=== PATIENT | female | born 1990 | race Two or more races ===

== ENCOUNTER → 2023-01-10 08:16 | Outpatient (REF) | payer BC, SELFPAY ==
[2023-01-10 13:08] LABS: Beta HCG Quantitative < 2.39 mIU/ml
== END ==
LOC: REG 08:16
PROVIDERS: ATTENDING PHYSICIAN Student in an Organized Health Care Education/Training Program; FAMILY PHYSICIAN Nurse Practitioner Family
DX: N92.6 Irregular menstruation, unspecified (principal)
CPT/HCPCS: 36415; 84702

== ENCOUNTER → 2023-05-26 12:19 | Outpatient (REF) | payer BC, SELFPAY | LOC: RAD 12:19 | PROVIDERS: ATTENDING PHYSICIAN Nurse Practitioner Family | DX: Z32.01 Encounter for pregnancy test, result positive (principal) | CPT/HCPCS: 36415; 84702 ==

== ENCOUNTER → 2023-06-01 09:24 | Outpatient (REF) | payer BC, SELFPAY ==
[2023-06-10 00:19] LABS: Chlamydia trachomatis,ThinPrep Negative (Negative); Neisseria gonorrhoeae,ThinPrep Negative (Negative); Specimen Source Cervical
[2023-06-10 00:31] LABS: HPV, High Risk Not Detected; HPV, High Risk Source Cervical
== END ==
LOC: CPAP 09:24
PROVIDERS: ATTENDING PHYSICIAN Obstetrics & Gynecology
DX: Z01.419 Encounter for gynecological examination (general) (routine) without abnormal findings (principal); Z11.51 Encounter for screening for human papillomavirus (HPV); Z11.3 Encounter for screening for infections with a predominantly sexual mode of transmission
CPT/HCPCS: 87491; 87591; 87624; G0123

== ENCOUNTER → 2023-06-02 08:05 | Outpatient (REF) | payer BC, SELFPAY ==
[2023-06-02 09:03] LABS: % Basophils 0.4 % (0-2); % Eosinophils 0.6 % (0-6); % Immature Granulocytes 0.2 % (0-0.5); % Lymphocytes 23.9 % (20.5-51.1); % Monocytes 6.7 % (1.7-9.3); % Neutrophils 68.2 % (42.2-75.2); Absolute Eosinophils 0.1 10^3/uL (0-0.7); Absolute Lymphocytes 2.1 10^3/uL (1.2-3.4); Absolute Monocytes 0.6 10^3/uL (0.1-0.6); Absolute Neutrophils 6.1 10^3/uL (1.4-6.5); Hematocrit 37.8 % (37.0-47.0); Hemoglobin 13.5 g/dL (12.0-16.0); Mean Corp Hgb Conc. 35.7 g/dL (33.0-37.0); Mean Corpuscular Volume 89.6 fL (81.0-99.0); Mean Platelet Volume 9.2 fL (7.4-10.4); Nucleated Red Blood Cells % 0 %; Platelet Count 232 10^3/uL (130-400); Red Blood Cell Count 4.22 10^6/uL (4.20-5.40); Red Cell Dist. Width 12.1 % (11.5-14.5); White Blood Cell Count 8.9 10^3/uL (4.8-10.8)
[2023-06-02 09:30] LABS: Glycohemoglobin (HgbA1c) 5.2 % (4.0-5.6)
[2023-06-02 09:59] LABS: Rubella Positive
[2023-06-02 10:05] LABS: Hepatitis B Surface Antigen Negative (Negative)
[2023-06-02 10:22] LABS: Hepatitis C Antibody Negative (Negative)
[2023-06-02 10:55] LABS: Urine Albumin Negative (Neg - Trace); Urine Bilirubin Negative (Negative); Urine Character Clear (Clear); Urine Color Yellow; Urine Glucose Negative (Negative); Urine Ketone Negative (Negative); Urine Leukocyte 1+ (Negative); Urine Nitrite Negative (Negative); Urine Occult Blood Negative (Negative); Urine Specific Gravity 1.005 (<1.030); Urine Urobilinogen Negative (Neg - 1+)
[2023-06-02 11:16] LABS: Urine White Cell 0-2 /HPF (0-5)
[2023-06-02 17:19] LABS: Syphilis/T. pallidum Ab Reflex Negative (Negative)
[2023-06-02 19:23] LABS: HIV Combo Negative (Negative)
== END ==
LOC: REG 08:05
PROVIDERS: ATTENDING PHYSICIAN Obstetrics & Gynecology; FAMILY PHYSICIAN Nurse Practitioner Family
DX: Z34.90 Encounter for supervision of normal pregnancy, unspecified, unspecified trimester (principal)
CPT/HCPCS: 36415; 80055; 81003; 81015; 83036; 84702; 86803; 86850; 86900; 86901; 87086; 87389

== ENCOUNTER → 2023-06-12 14:28 | Outpatient (REF) | payer BC, SELFPAY | LOC: PNTC 14:28 | PROVIDERS: ATTENDING PHYSICIAN Obstetrics & Gynecology | DX: Z36.0 Encounter for antenatal screening for chromosomal anomalies (principal) | CPT/HCPCS: 36415 ==

== ENCOUNTER → 2023-07-11 12:10 | Outpatient (REF) | payer BC, SELFPAY | LOC: REG 12:10 | PROVIDERS: ATTENDING PHYSICIAN Obstetrics & Gynecology; FAMILY PHYSICIAN Nurse Practitioner Family | DX: Z34.90 Encounter for supervision of normal pregnancy, unspecified, unspecified trimester (principal) | CPT/HCPCS: 36415; 82105 ==

== ENCOUNTER → 2023-09-07 08:18 | Outpatient (REF) | payer BC, SELFPAY ==
[2023-09-07 10:04] LABS: % Basophils 0.3 % (0-2); % Eosinophils 1.1 % (0-6); % Immature Granulocytes 0.9 % (0-0.5); % Lymphocytes 23.1 % (20.5-51.1); % Monocytes 6.5 % (1.7-9.3); % Neutrophils 68.1 % (42.2-75.2); Absolute Eosinophils 0.1 10^3/uL (0-0.7); Absolute Immature Granulocytes 0.1 10^3/uL (0-0.05); Absolute Lymphocytes 2.3 10^3/uL (1.2-3.4); Absolute Monocytes 0.7 10^3/uL (0.1-0.6); Absolute Neutrophils 6.8 10^3/uL (1.4-6.5); Hemoglobin 11.8 g/dL (12.0-16.0); Mean Corp Hgb Conc. 34.7 g/dL (33.0-37.0); Mean Corpuscular Hgb 30.6 pg (27.0-31.0); Mean Corpuscular Volume 88.3 fL (81.0-99.0); Nucleated Red Blood Cells % 0 %; Platelet Count 276 10^3/uL (130-400); Red Blood Cell Count 3.85 10^6/uL (4.20-5.40); Red Cell Dist. Width 12.3 % (11.5-14.5)
[2023-09-07 11:56] LABS: 1 Hour after 50gm 93 mg/dl
[2023-09-08 15:57] LABS: Syphilis/T. pallidum Ab Reflex Negative (Negative)
== END ==
LOC: REG 08:18
PROVIDERS: ATTENDING PHYSICIAN Obstetrics & Gynecology; FAMILY PHYSICIAN Nurse Practitioner Family
DX: Z34.03 Encounter for supervision of normal first pregnancy, third trimester (principal)
CPT/HCPCS: 36415; 82950; 85025; 86780

== ENCOUNTER → 2023-09-28 08:51 | Outpatient (REF) | payer BC, SELFPAY | LOC: PNTC 08:51 | PROVIDERS: ATTENDING PHYSICIAN Obstetrics & Gynecology | DX: O36.8190 Decreased fetal movements, unspecified trimester, not applicable or unspecified (principal) | CPT/HCPCS: 59025; 76815 ==

== ENCOUNTER 2023-10-25 12:58 | Observation (INO) | payer BC, SELFPAY ==
[2023-10-25] MEDS: LR 1000 IV (13:00)
[2023-10-25 13:15] LABS: Urine Albumin Negative (Neg - Trace); Urine Bilirubin Negative (Negative); Urine Character Clear (Clear); Urine Color Yellow; Urine Glucose Negative (Negative); Urine Ketone 1+ (Negative); Urine Leukocyte 1+ (Negative); Urine Nitrite Negative (Negative); Urine Occult Blood Negative (Negative); Urine Specific Gravity 1.005 (<1.030); Urine Urobilinogen Negative (Neg - 1+)
[2023-10-25 13:19] VITALS: BP 116/76; BMI 30.8
[2023-10-25 13:55] LABS: Urine Squamous Cell >30 /LPF (Few)
[2023-10-25 13:58] LABS: Urine Bacteria Moderate (Negative); Urine Red Blood Cell None Seen /HPF (0-2)
[2023-10-25] MEDS: BRETHINE 250 MCG SC (15:01)
[2023-10-25 15:21] LABS: COVID-19 Antigen Negative (Negative)
== END 2023-10-25 18:16 | disposition home or self-care (01) ==
LOC: LDRP 12:58
PROVIDERS: ADMITTING PHYSICIAN Obstetrics & Gynecology; ATTENDING PHYSICIAN Obstetrics & Gynecology
DX: O36.8130 Decreased fetal movements, third trimester, not applicable or unspecified (principal); O47.03 False labor before 37 completed weeks of gestation, third trimester; Z3A.33 33 weeks gestation of pregnancy; O98.813 Other maternal infectious and parasitic diseases complicating pregnancy, third trimester; B37.31 Acute candidiasis of vulva and vagina; Z11.52 Encounter for screening for COVID-19
CPT/HCPCS: 59025; 76815; 81003; 81015; 87086; 87811; G0378

== ENCOUNTER → 2023-10-27 08:36 | Outpatient (REF) | payer BC, SELFPAY ==
[2023-10-27 09:13] LABS: % Basophils 0.5 % (0-2); % Eosinophils 1.7 % (0-6); % Immature Granulocytes 1.3 % (0-0.5); % Lymphocytes 23.2 % (20.5-51.1); % Monocytes 9.8 % (1.7-9.3); % Neutrophils 63.5 % (42.2-75.2); Absolute Eosinophils 0.2 10^3/uL (0-0.7); Absolute Immature Granulocytes 0.1 10^3/uL (0-0.05); Absolute Monocytes 0.9 10^3/uL (0.1-0.6); Absolute Neutrophils 5.5 10^3/uL (1.4-6.5); Hematocrit 35.2 % (37.0-47.0); Hemoglobin 11.8 g/dL (12.0-16.0); Mean Corp Hgb Conc. 33.5 g/dL (33.0-37.0); Mean Corpuscular Hgb 29.8 pg (27.0-31.0); Mean Corpuscular Volume 88.9 fL (81.0-99.0); Nucleated Red Blood Cells % 0 %; Platelet Count 178 10^3/uL (130-400); Red Blood Cell Count 3.96 10^6/uL (4.20-5.40); Red Cell Dist. Width 12.6 % (11.5-14.5); White Blood Cell Count 8.7 10^3/uL (4.8-10.8)
[2023-10-27 10:12] LABS: ALT (SGPT) 29 U/L (0-35); AST (SGOT) 33 U/L (14-36); Albumin 3.5 g/dl (3.5-5.0); Alkaline Phosphatase 128 U/L (38-126); Blood Urea Nitrogen 4 mg/dl (7-17); Calcium 9.1 mg/dl (8.4-10.2); Carbon Dioxide 23 mmol/L (22-30); Chloride 104 mmol/L (98-107); Glucose 80 mg/dl (70-99); HDL Cholesterol 67 mg/dl; LDL Cholesterol, Calculated 114 mg/dl; Sodium 137 mmol/L (135-145); Total Bilirubin 0.4 mg/dl (0.2-1.3); Total Cholesterol 244 mg/dl (50-199); Total Protein 6.3 g/dl (6.3-8.2); Triglyceride 318 mg/dl (10-149); Very Low Density Lipoprotein 63 mg/dl (0-30); eGFR > 60.00
[2023-10-27 10:34] LABS: TSH Reflex To Free T4 3.51 uIU/ml (0.47-4.68)
[2023-10-28 18:59] LABS: CA 19-9 8 U/mL (<=35)
== END ==
LOC: REG 08:36
PROVIDERS: ATTENDING PHYSICIAN Nurse Practitioner Family; REFERRING PHYSICIAN Obstetrics & Gynecology
DX: Z34.93 Encounter for supervision of normal pregnancy, unspecified, third trimester (principal); Z00.00 Encounter for general adult medical examination without abnormal findings
CPT/HCPCS: 36415; 80053; 80061; 84443; 85025; 86301

== ENCOUNTER → 2023-11-02 12:14 | Outpatient (REF) | payer BC, SELFPAY ==
[2023-11-03 13:14] LABS: Urine Albumin Negative (Neg - Trace); Urine Bilirubin Negative (Negative); Urine Character Clear (Clear); Urine Color Yellow; Urine Glucose Negative (Negative); Urine Ketone Negative (Negative); Urine Leukocyte 1+ (Negative); Urine Nitrite Negative (Negative); Urine Occult Blood Negative (Negative); Urine Specific Gravity 1.005 (<1.030); Urine Urobilinogen Negative (Neg - 1+)
[2023-11-03 14:01] LABS: Urine Squamous Cell >30 /LPF (Few)
[2023-11-03 14:02] LABS: Urine Bacteria Many (Negative)
[2023-11-03 14:04] LABS: Urine Red Blood Cell 0-2 /HPF (0-2)
== END ==
LOC: CLAB 12:14
PROVIDERS: ATTENDING PHYSICIAN Obstetrics & Gynecology
DX: Z34.93 Encounter for supervision of normal pregnancy, unspecified, third trimester (principal)
CPT/HCPCS: 81003; 81015; 87086

== ENCOUNTER → 2023-11-17 10:39 | Outpatient (REF) | payer BC, SELFPAY | LOC: CPAP 10:39 | PROVIDERS: ATTENDING PHYSICIAN Obstetrics & Gynecology | DX: Z36.85 Encounter for antenatal screening for Streptococcus B (principal); Z34.93 Encounter for supervision of normal pregnancy, unspecified, third trimester | CPT/HCPCS: 87070 ==

== ENCOUNTER → 2023-11-28 10:57 | Outpatient (REF) | payer BC, SELFPAY | LOC: PNTC 10:57 | PROVIDERS: ATTENDING PHYSICIAN Student in an Organized Health Care Education/Training Program | DX: O36.8190 Decreased fetal movements, unspecified trimester, not applicable or unspecified (principal) | CPT/HCPCS: 59025; 76815 ==

== ENCOUNTER 2023-12-13 20:51 | Inpatient (IN) | payer BC, SELFPAY ==
[2023-12-13 20:52] VITALS: BP 136/89
[2023-12-13 20:58] VITALS: BMI 31.8
[2023-12-13 21:55] LABS: % Basophils 0.2 % (0-2); % Eosinophils 1.1 % (0-6); % Immature Granulocytes 0.9 % (0-0.5); % Lymphocytes 21.9 % (20.5-51.1); % Monocytes 8.8 % (1.7-9.3); % Neutrophils 67.1 % (42.2-75.2); Absolute Eosinophils 0.1 10^3/uL (0-0.7); Absolute Immature Granulocytes 0.1 10^3/uL (0-0.05); Absolute Lymphocytes 2.9 10^3/uL (1.2-3.4); Absolute Monocytes 1.2 10^3/uL (0.1-0.6); Absolute Neutrophils 8.8 10^3/uL (1.4-6.5); Hematocrit 31.5 % (37.0-47.0); Hemoglobin 10.9 g/dL (12.0-16.0); Mean Corp Hgb Conc. 34.6 g/dL (33.0-37.0); Mean Corpuscular Hgb 27.8 pg (27.0-31.0); Mean Corpuscular Volume 80.4 fL (81.0-99.0); Mean Platelet Volume 9.1 fL (7.4-10.4); Nucleated Red Blood Cells % 0 %; Platelet Count 248 10^3/uL (130-400); Red Blood Cell Count 3.92 10^6/uL (4.20-5.40); Red Cell Dist. Width 13.7 % (11.5-14.5); White Blood Cell Count 13.1 10^3/uL (4.8-10.8)
[2023-12-13] MEDS: CYTOTEC 25 MICROGRAM VAG (21:57)
[2023-12-14] MEDS: CYTOTEC 50 MICROGRAM PO (02:02)
[2023-12-14] MEDS: LR 1000 IV ×3 (04:17→14:08)
[2023-12-14] MEDS: CYTOTEC PO (05:48)
[2023-12-14] MEDS: STADOL 1 MG IV (06:08)
[2023-12-14] MEDS: PITOCIN 30 UNITS/NSS 500 ML IV ×2 (09:40→17:43)
[2023-12-14] MEDS: SUBLIMAZE 100 MCG EPIDURAL (13:51)
[2023-12-14] MEDS: FENTANYL/BUPIVACAINE 100 EPIDURAL (13:52)
[2023-12-14] MEDS: MOTRIN 600 MG PO (23:37)
[2023-12-14] MEDS: TYLENOL 650 MG PO (23:37)
[2023-12-15 04:27] LABS: Hematocrit 27.7 % (37.0-47.0); Hemoglobin 9.6 g/dL (12.0-16.0)
[2023-12-15] MEDS: TYLENOL 650 MG PO ×3 (05:35→20:19)
[2023-12-15] MEDS: MOTRIN 600 MG PO ×2 (05:37→12:19)
[2023-12-15] MEDS: PRENATAL PLUS 1 TABLET PO (09:11)
[2023-12-15] MEDS: SENOKOT-S 1 TABLET PO (09:12)
[2023-12-15] MEDS: FEOSOL 325 MG PO (09:12)
[2023-12-15 11:53] LABS: Syphilis/T. pallidum Ab Reflex Negative (Negative)
[2023-12-16] MEDS: MOTRIN 600 MG PO ×2 (00:12→08:19)
[2023-12-16] MEDS: TYLENOL 650 MG PO (06:08)
[2023-12-16] MEDS: PRENATAL PLUS 1 TABLET PO (08:07)
[2023-12-16] MEDS: FEOSOL 325 MG PO (08:08)
== END 2023-12-16 14:31 | disposition home or self-care (01) | DRG 807 ==
LOC: LDRP 20:51
PROVIDERS: Obstetrics & Gynecology; ADMITTING PHYSICIAN Obstetrics & Gynecology; FAMILY PHYSICIAN Nurse Practitioner Family
PROC: 3E033VJ Introduction of Other Hormone into Peripheral Vein, Percutaneous Approach (ICD-10-PCS; 2023-12-13)
PROC: 3E0P7VZ Introduction of Hormone into Female Reproductive, Via Natural or Artificial Opening (ICD-10-PCS; 2023-12-13)
PROC: 10E0XZZ Delivery of Products of Conception, External Approach (ICD-10-PCS; 2023-12-14)
PROC: 0KQM0ZZ Repair Perineum Muscle, Open Approach (ICD-10-PCS; 2023-12-14)
PROC: 0UQMXZZ Repair Vulva, External Approach (ICD-10-PCS; 2023-12-14)
PROC: 4A1HXCZ Monitoring of Products of Conception, Cardiac Rate, External Approach (ICD-10-PCS; 2023-12-14)
DX: O48.0 Post-term pregnancy (principal); Z37.0 Single live birth; O69.81X0 Labor and delivery complicated by cord around neck, without compression, not applicable or unspecified; O76 Abnormality in fetal heart rate and rhythm complicating labor and delivery; O70.1 Second degree perineal laceration during delivery; Z3A.40 40 weeks gestation of pregnancy
CPT/HCPCS: 36415; 85014; 85018; 85025; 86780; 86850; 86900; 86901

== ENCOUNTER → 2024-01-25 14:05 | Outpatient (REF) | payer BC, SELFPAY | LOC: CPAP 14:05 | PROVIDERS: ATTENDING PHYSICIAN Obstetrics & Gynecology | DX: N76.0 Acute vaginitis (principal) | CPT/HCPCS: 81513; 87481; 87661 ==

== ENCOUNTER → 2024-03-19 06:40 | Outpatient (REF) | payer BC, SELFPAY ==
[2024-03-19 07:59] LABS: HDL Cholesterol 51 mg/dl; LDL Cholesterol, Calculated 104 mg/dl; Total Cholesterol 179 mg/dl (50-199); Triglyceride 121 mg/dl (10-149); Very Low Density Lipoprotein 24 mg/dl (0-30)
== END ==
LOC: REG 06:40
PROVIDERS: ATTENDING PHYSICIAN Nurse Practitioner Family
DX: E78.2 Mixed hyperlipidemia (principal)
CPT/HCPCS: 36415; 80061

== ENCOUNTER → 2024-11-22 06:25 | Outpatient (REF) | payer BC, SELFPAY ==
[2024-11-22 08:50] LABS: Hematocrit 45.2 % (37.0-47.0); Hemoglobin 15.4 g/dL (12.0-16.0); Mean Corp Hgb Conc. 34.1 g/dL (33.0-37.0); Mean Corpuscular Volume 90.6 fL (81.0-99.0); Nucleated Red Blood Cells % 0 %; Platelet Count 307 10^3/uL (130-400); Red Cell Dist. Width 12.3 % (11.5-14.5)
[2024-11-22 09:27] LABS: ALT (SGPT) 20 U/L (0-35); AST (SGOT) 24 U/L (14-36); Albumin 5.7 g/dl (3.5-5.0); Alkaline Phosphatase 59 U/L (38-126); Blood Urea Nitrogen 9 mg/dl (7-17); Calcium 9.7 mg/dl (8.4-10.2); Carbon Dioxide 26 mmol/L (22-30); Chloride 106 mmol/L (98-107); Glucose 89 mg/dl (70-99); HDL Cholesterol 58 mg/dl; LDL Cholesterol, Calculated 107 mg/dl; Potassium 4.3 mmol/L (3.5-5.1); Sodium 143 mmol/L (135-145); Total Protein 9.2 g/dl (6.3-8.2); Very Low Density Lipoprotein 25 mg/dl (0-30); eGFR > 60.00
== END ==
LOC: REG 06:25
PROVIDERS: ATTENDING PHYSICIAN Nurse Practitioner Family
DX: Z00.00 Encounter for general adult medical examination without abnormal findings (principal)
CPT/HCPCS: 36415; 80053; 80061; 84443; 85025